=== PATIENT | male | born 1955 | race Caucasian/White ===

== ENCOUNTER → 2021-11-25 14:48 | Outpatient (CLI) | payer OTHER, MEDICAID, SELFPAY | PROVIDERS: Family Provider Family Medicine; PCP Family Medicine; Referring Provider Physician Assistant; Visit Provider Physician Assistant | DX: L03.115 Cellulitis of right lower limb (principal) | CPT/HCPCS: 87070; 87075; 87077; 87147; 87186; 87205 ==

== ENCOUNTER → 2021-12-16 15:54 | Outpatient (CLI) | payer OTHER, MEDICAID, SELFPAY | PROVIDERS: Family Provider Family Medicine; PCP Family Medicine; Referring Provider Physician Assistant; Visit Provider Physician Assistant | DX: U07.1 COVID-19 (principal) | CPT/HCPCS: C9803 ==

== ENCOUNTER → 2024-04-10 09:02 | Outpatient (CLI) | payer MEDICARE, SELFPAY ==
[2024-04-10 19:38] LABS: Hematocrit 48.2 % (41-53); Hemoglobin 16.2 g/dL (13.5-17.5); Mean Corpuscular HGB Conc 33.5 % (30-36); Mean Corpuscular Hemoglobin 31.4 PG (26-34); Mean Corpuscular Volume 93.6 fL (80-100); Platelet Count 259 X10^3/uL (150-400); Red Blood Cell Count 5.15 X10^6/uL (4.5-5.9); Red Cell Distribution Width 14.7 % (11.6-14.8); White Blood Cell Count 7.2 X10^3/uL (4.5-11.0)
[2024-04-10 19:39] LABS: Alanine Aminotransferase 18 IU/L (<50); Albumin 3.8 g/dL (3.5-5.0); Albumin Globulin Ratio 1.3 (1.0-2.8); Alkaline Phosphatase 93 U/L (38-126); Aspartate Aminotransferase 27 IU/L (17-59); BUN Creatinine Ratio 19.8 (6-22); Blood Urea Nitrogen 20 mg/dL (9-20); Calcium 8.8 mg/dL (8.4-10.2); Carbon Dioxide 31 mmol/L (22-32); Chloride 101 mmol/L (98-107); Cholesterol 188 mg/dL (140-199); Estimated Glomerular Filt Rate > 60 mL/min (>60); Globulin 2.9 g/dL (1.7-4.1); Glucose 103 mg/dL (80-110); HDL Cholesterol 80 mg/dL (40-60); HEMOLYSIS < 15 (0-50); LDL Cholesterol Calculated 87 mg/dL (<100); Potassium 3.6 mmol/L (3.4-5.1); Sodium 139 mmol/L (137-145); Total Protein 6.7 g/dL (6.3-8.2); Triglycerides 104 mg/dL (35-150)
[2024-04-10 19:43] LABS: Add Manual Diff / Slide Review YES
[2024-04-10 20:10] LABS: Prostate Specific Antigen Scrn 0.958 ng/mL (0.1-4.0); TSH w/ Reflex to FT4 1.29 uIU/mL (0.47-4.68)
[2024-04-10 20:16] LABS: Neutrophils Absolute Manual 3384 /uL (3000-5900); Total Cells Counted 100
[2024-04-10 20:17] LABS: RBC Morphology Normal Morphology
== END ==
PROVIDERS: Family Provider Family Medicine; PCP Physician Assistant; Visit Provider Physician Assistant
DX: I10 Essential (primary) hypertension (principal); M11.20 Other chondrocalcinosis, unspecified site; Z12.5 Encounter for screening for malignant neoplasm of prostate; M17.0 Bilateral primary osteoarthritis of knee; L40.9 Psoriasis, unspecified; E78.9 Disorder of lipoprotein metabolism, unspecified; Z79.899 Other long term (current) drug therapy; Z11.59 Encounter for screening for other viral diseases
CPT/HCPCS: 80053; 80061; 84443; 85007; 85025; 86803; G0103

== ENCOUNTER → 2024-11-28 10:50 | Outpatient (CLI) | payer MEDICARE, SELFPAY ==
--- NOTE | 2024-11-28 10:54 | EKG_ITS ---
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
[2024-11-28 12:27] LABS: Add Manual Diff / Slide Review NO; Basophils Absolute Auto 100 /uL (0-100); Basophils Percent Auto 1.4 % (0-2); Eosinophils Absolute Auto 200 /uL (0-450); Eosinophils Percent Auto 1.8 % (2-4); Hematocrit 45.8 % (41-53); Hemoglobin 15.2 g/dL (13.5-17.5); Lymphocytes Absolute Auto 2600 /uL (1100-4500); Lymphocytes Percent Auto 29.4 % (25-40); Mean Corpuscular HGB Conc 33.2 % (30-36); Mean Corpuscular Hemoglobin 31.8 PG (26-34); Monocytes Absolute Auto 800 /uL (0-900); Monocytes Percent Auto 9.2 % (3-14); Neutrophils Absolute Auto 5200 /uL (1500-7000); Neutrophils Percent Auto 58.2 % (50-75); Platelet Count 255 X10^3/uL (150-400); Red Blood Cell Count 4.77 X10^6/uL (4.5-5.9); Red Cell Distribution Width 14.8 % (11.6-14.8)
[2024-11-28 12:51] LABS: BUN Creatinine Ratio 22.3 (6-22); Blood Urea Nitrogen 21 mg/dL (9-20); Calcium 9.3 mg/dL (8.4-10.2); Carbon Dioxide 24 mmol/L (22-32); Chloride 104 mmol/L (98-107); Estimated Glomerular Filt Rate > 60 mL/min (>60); Glucose 112 mg/dL (80-110); HEMOLYSIS < 15 (0-50); Potassium 4.5 mmol/L (3.4-5.1); Sodium 136 mmol/L (137-145)
== END ==
LOC: LAB 10:52
PROVIDERS: Family Provider Family Medicine; PCP Physician Assistant; Referring Provider Orthopaedic Surgery; Visit Provider Orthopaedic Surgery
DX: Z01.818 Encounter for other preprocedural examination (principal); R73.9 Hyperglycemia, unspecified; Z01.812 Encounter for preprocedural laboratory examination; N39.0 Urinary tract infection, site not specified
CPT/HCPCS: 80048; 83036; 85025; 93005

== ENCOUNTER 2024-12-04 06:15 | Day surgery (SDC) | payer MEDICARE, SELFPAY ==
[2024-11-27 08:03] VITALS: BMI 31.8
[2024-12-04] VITALS (12 sets, daily range): BP systolic 94–144; BP diastolic 56–94; PULSE 79–103; RESP 14–20; TEMP 35.8–37.3; O2SAT 93–99; BMI 28.6
--- NOTE | 2024-12-04 | DI.RAD.S_ITS ---
PROCEDURE: XR HIP W PEL IF DONE RT 4V INDICATIONS: INTRA OP ANTERIOR RT HIP TECHNIQUE: Single intraoperative AP view of the right hip was obtained COMPARISON: None. FINDINGS: Bones: There are no osseous abnormalities. SI and hip joints: Right total hip prosthesis is anatomically aligned. Soft tissues: Mild soft tissue swelling. IMPRESSION: Right total hip prosthesis is anatomically aligned. Dictated by: Hammad Cadena M.D. on 12/05/2024 at 9:23 Approved by: Hammad Cadena M.D. on 12/05/2024 at 9:24
--- NOTE | 2024-12-04 06:00 | DI.RAD.S_ITS ---
PROCEDURE: XR HIP W PEL IF DONE RT 2V INDICATIONS: ANTERIOR TOTAL RIGHT HIP TECHNIQUE: AP pelvis and lateral view of the hip acquired. COMPARISON: [facility], [place], XR HIP W PEL IF DONE RT 4V, 12/04/2024, 9:07. FINDINGS: Bones: Patient is status post right hip arthroplasty, with hardware components in expected positions. The hip joint appears congruent. The visualized bony structures appear intact. Soft tissues: Overlying postoperative changes are noted. No suspicious soft tissue densities. IMPRESSION: Expected post-operative appearance of a right hip arthroplasty. Dictated by: Jacoby York M.D. on 12/04/2024 at 12:36 Approved by: Jacoby York M.D. on 12/04/2024 at 12:37
[2024-12-04] MEDS: LACTATED RINGERS 1,000 ML 42 ML IV ×2 (07:15→08:55)
[2024-12-04] MEDS: CELECOXIB 200 MG CAPSULE PO (07:15)
[2024-12-04] MEDS: ACETAMINOPHEN 325 MG TABLET 975 MG PO (07:15)
[2024-12-04] MEDS: VANCOMYCIN 1,000 MG in SODIUM CHLORIDE 0.9% 250 ML 250 MG IV (07:27)
--- NOTE | 2024-12-04 07:43 | PM.PREOP ---
Pre-operative Note Interval Note History & Physical reviewed/Exam performed by Physician: Yes Changes to H&P: No
--- NOTE | 2024-12-04 07:43 | PM.OP.1 ---
Operative Date/Time/Diagnoses Date of procedure: 12/04/24 Time of procedure: 08:00 Pre-op diagnosis: right hip OA Post-op diagnosis: same Procedure & Clinicians Procedure: right total hip anterior approach Same procedure as scheduled: Yes Indications: The patient has had progressively worsening right hip pain with radiographic changes consistent with arthritis. Non-operative management has failed and the patient has requested total hip replacement. The risks, benefits and alternatives to surgery were discussed with the patient prior to proceeding. Risks discussed included, but were not limited to, failure to relieve pain, leg length discrepancy, dislocation, stiffness, infection, nerve damage, deep venous thrombosis, pulmonary embolism, stroke, coma, heart attack, permanent paralysis and , as well as the potential need for eventual revision of the prosthetic. Surgeon: Erin Robert Heading Saw Operator: Joleen Holliday Anesthesia Type: General and Spinal Operative Notes Findings: Severe right hip OA, adequate bone, adequate stability Closure Type: primary Specimen(s): none sent Prosthetic devices, grafts, tissues, transplants, or devices: Robert and nephew R3 58, neutral poly liner,one 6.5 mm screw, polar stem lateralized size 4, 36 x +0 cobalt chrome head Estimated Blood Loss (mL): 250 Blood products transfused: none Procedure in detail: The patient was brought to the operating room. Patient was carefully positioned in the supine position. Time-out was performed and antibiotics were given. Anesthesia was induced. He was positioned in the on the table in order to allow hyperextension of the hip. The right lower extremity was prepped and draped in a standard sterile fashion. An anterior right hip incision was made 1 fingerbreadth lateral to the anterior superior iliac spine and extended distally towards the greater trochanter. Dissection was carried out through skin and subcutaneous tissues. Superficial hemostasis was achieved. The fascia over the tensor fascia vianey was defined and incised with a knife. Two Allis clamps were used to grasp the fascia. Tensor fascia vianey was retracted laterally. A gelpi retractor was placed. Dissection was carried out down along the neck. The circumflex vessels were carefully identified and cauterized with the Aqua Mantis. A PA was used during the procedure and was essential for intraoperative retraction and safe implantation of the components. There was good visualization of the femoral neck. A Cobra was placed superior to the neck and the gluteus fibers were carefully stripped from that superior aspect of the capsule. A 2nd retractor was placed along the inferior aspect of the neck. The rectus insertion along the capsule was partially released. A 3rd retractor that was then gently placed over the rim of the acetabulum under the rectus. Capsule was carefully incised and released from the intertrochanteric line circumferentially superior to the mid sagittal line and inferiorly to the mid sagittal line until the lesser trochanter was palpable. A tag stitch was placed both in the superior and inferior limb of the capsular insertion. Along the acetabulum capsule was also released up to the mid sagittal 12:00 position. A portion of the labrum was resected. A saw was used to perform an osteotomy at the level of the intertrochanteric line and the junction of the superior femoral neck leaving approximately 1 finger breath of residual inferior neck above the lesser trochanter. A 2nd cut was made along the femoral neck at the base of the head and a napkin ring of neck was removed. Corkscrew was placed in the femoral head and the head was removed without difficulty. Retractors were then repositioned around the acetabulum. Residual labrum was resected and additional osteophytes were removed. A reamer that was 4 mm below the templated size was placed by hand in the acetabulum and it was reamed to centralize the acetabulum. It was then reamed up to 2 under the templated size and fluoroscopy was brought in to confirm the position of the reaming and depth of reaming. I reamed 1 under the anticipated size. A trial cup was placed and noted that it was appropriately sized and fluoroscopy confirmed position and depth. The component was open and inserted without difficulty fluoroscopic imaging was used to confirm that the cup had been adequately seated and was well positioned. It was further stabilized with a single screw. Neutral poly liner was placed. The cup was tested and noted to be stable. Attention was then directed to the femur. The femur was gently hyperextended additional capsular release was performed as needed in order to allow adequate visualization of the proximal femur with elevation of the femur. Patient was placed in a hyperextended slightly adducted position with maximum external rotation. Box osteotome was used to check for any residual neck as well as sclerotic bone along the trochanter. [place] pepper was placed in the femur. Additional broaching was performed. Canal finder was used to determine the alignment of the canal and position. Size 1 broach was placed. The canal was then appropriately broached up to the templated size as long as there was adequate stability of the broach and serial advancement of the broach without excessive impingement. Specific attention was directed at avoiding varus attempting to direct the distal aspect of the broach more anteriorly and avoiding excessive anteversion. Trial reduction showed acceptable range of motion, good stability, no posterior impingement, nondenominational of leg length and appropriate lateral shuck. I also hyperflexed the hip and checked that there was no impingement anteriorly and there was good stability with flexion, adduction and internal rotation. Marcaine and Exparel were injected. The stem was placed without difficulty. Repeat trial reduction and x-ray showed acceptable overall position, length, and no evidence of the femoral fracture. Final head was placed. Wound was meticulously irrigated with normal saline. The hip was reduced and additional Exparel and Marcaine were injected. The capsule was closed with interrupted nonabsorbable sutures. The fascia of the tensor was closed with interrupted and running Vicryl. No drain was placed. Any tensor fascia vianey muscle that appeared to be contused or injured which was a minimal amount was carefully resected. Capsule around the tensor was injected with Exparel and Marcaine. The skin was closed with barbed stitches for the subcutaneous tissue and skin. We also used surgical glue. The wound was dressed sterilely. Brief Betadine soak was also used and was meticulously irrigated with normal saline. Patient was transferred to recovery room in satisfactory condition. Complications: none Post-operative Condition: stable Disposition: same day surgery Plan for aftercare: The patient will be maintained on a standard total hip replacement protocol with weight bearing as tolerated and anterior hip precautions. The patient will receive Aspirin and sequential compression devices for DVT prophylaxis. The patient will be discharged home when safe for the home environment.
[2024-12-04] MEDS: CEFAZOLIN 2 GM/100 ML PREMIX 100 ML IV ×3 (08:00→23:56)
[2024-12-04] MEDS: TRANEXAMIC ACID 1,000 MG VIAL 2000 MG INJ ×2 (08:02→10:05)
--- NOTE | 2024-12-04 08:28 | SUR.OPER ---
Patient supine on padded [place] table, one arm on padded arm board at <90, other arm padded and secured with tape across patient's chest, both legs secured in padded traction boots and positioned per surgeon, padded post at patient's groin, pressure points checked and padded.
[2024-12-04] MEDS: BUPIVACAINE 0.25% W/ EPI 30 ML VIAL 60 ML INJ (08:42)
[2024-12-04] MEDS: BUPIVACAINE LIPOSOME 266 MG/20 ML VIAL INJ (08:42)
[2024-12-04] MEDS: OXYCODONE IR 5 MG TABLET PO ×3 (11:02→21:34)
[2024-12-04] MEDS: LACTATED RINGERS 1,000 ML 100 ML IV (11:42)
--- NOTE | 2024-12-04 12:41 | PC.NURSE ---
Pt to room 203 via bed from PACU. Pt is awake, alert, and oriented. Spouse Gay is at the bedside. IV infusing as ordered. Bed alarm on for safety, scd's on and running as directed. Pt oriented to room, call light, bed controls, and tv controls. Ice pack to cdi aquacell dsg to right anterior hip. Pt denies needs at this time and agrees to call for assistance as needed.
[2024-12-04] MEDS: ACETAMINOPHEN 325 MG TABLET 650 MG PO (14:36)
[2024-12-04] MEDS: IBUPROFEN 400 MG TABLET PO (14:36)
--- NOTE | 2024-12-04 15:35 | PT.IIE ---
Current Diagnoses Unilateral primary osteoarthritis, right hip (12/04/24) Surgery Performed Operation Date: 12/04/24 07:45 Actual Procedures p Total Hip Arthroplasty/Anterior Approach(Right) - Erin Robert MD Surgical History (Last Updated 11/27/24 @ 09:13 by Savannah De La Rosa, RN) H/O arthroscopy of knee Hx of abdominal surgery Hx of hernia repair Hx of shoulder surgery Medical History (Last Updated 11/29/24 @ 10:55 by Bonnie Tolliver RN) ADHD (~1979) Asthma Cellulitis (06/2017) Chicken pox (~1965) Depression (~2013) Hearing loss History of COVID-19 (2019) HTN (hypertension) Osteoarthritis PTSD (post-traumatic stress disorder) (~1978) Rib fracture Substance abuse (~1979) Physical Therapy Inpatient Evaluation/Re-Eval M1 PT/OT-IP Prior Functional Status Start: 12/04/24 17:04 Freq: NEEDED Status: Active Protocol: Document 12/04/24 15:35 AB (Rec: 12/04/24 17:18 AB [id number]) Medical Review Prior Functional Status Medical History Reviewed Yes Communication able to make needs known Mobility and Gait pts tated that he was modified independent with all mobilities and ambulation using a SPC but started using 1 crutch to walk ~ 4 month ago due to hip pain Social History Household Members spouse,children Living Arrangements House Number of Floors (Floors) One Floor Number of Stairs To Enter/Railing? 4 steps with wide bilateral rails and can only hold on to one rail at a time + 1 step to enter has 1 step up from the kitchen Home Environment Standard Height Toilet,Tub/ Shower Home Equipment Front Wheel Walker,Straight Cane,Crutches,Raised Toilet Seat w/Armrests,Shower Seat with Backrest Additional Social History Comment pt will have his spouse and son to assist him M2 PT-IP Current Condition Start: 12/04/24 17:04 Freq: NEEDED Status: Active Protocol: Document 12/04/24 15:35 AB (Rec: 12/04/24 17:18 AB [id number]) Physical Therapy Current Condition Current Condition Evaluation Date 12/04/24 Treatment Diagnosis s/p R TRACE anterior; difficulty in walking Onset Date 12/04/24 M3 PT-IP Subjective Start: 12/04/24 17:04 Freq: NEEDED Status: Active Protocol: Document 12/04/24 15:35 AB (Rec: 12/04/24 17:18 AB [id number]) Subjective Physical Therapy Visit Type Type Initial Evaluation Visit Start Time 15:35 Visit Stop Time 17:05 Number of RECORD PRODUCER Visits 0 Physical Therapy Visit Comments Patient Comments agreeable to do PT Therapy Pain Assessment Pain When Pain Assessed At Rest Pain Present Pain Present Pain Reported Location Right Hip Intensity 6 Scale Used Numeric (0 - 10) Pain Behaviors Guarding Pain Management Techniques Apply Cold,Distraction, Modification of Treatment,Re- positioning,Timing of Activity with Medications M4 PT-IP Mobility and Gait Start: 12/04/24 17:04 Freq: NEEDED Status: Active Protocol: Document 12/04/24 15:35 AB (Rec: 12/04/24 17:18 AB [id number]) PT-Bed Mobility Assessment Supine to Sit Supine to Sit Minimal Assistance Sit to Supine Sit to Supine Standby Assistance PT-Transfer Assessment Sit to and From Stand Sit to and from Stand Contact Guard Assistance,1 Person Assistance,2 Person Assistance Equipment Transfer Assistive Device Gait Belt,Front Wheeled Walker Orthotic/Prosthetic Devices or Brace: No Transfers Transfer Destination Bed,Chair Transfer Technique ambulated Transfer Ability Level of Assist Contact Guard Assistance,1 Person Assistance,Use of Upper Extremities Comments Mobility Comments pt sitting on the chair and agreeable to do PT. spouse in room with pt. obtained PLOF and home set up. pt is very [place] but also with confusion and clarified info pt provided . educated pt regarding hip precautions. post-op folder provided. pt completed sit to stand CGA. able to stand CGA. ambulated to EOB CGA and cues for safety using FWW CGA. pt completed bed mobility sit to supine min A for LE elevation to bed. SBA for supine to sit. informed spouse on how to assist pt. caregiver training conducted. educated spouse on how to use safety belt and how to assist pt. spouse was able to put safety belt on. assisted pt with sit to stand and ambulation in the hallway ~ 100 ft using FWW CGA. stair climbing training. educated pt on how to do stairs and educated spouse on how to assist pt. pt completed up/down 3 steps holding on to R rail with B rails ascending min A and cues . pt was also able to complete up/down platform step using FWW min A and cues. repeated x 2 sets. assisted pt back to his room. pt ambulated from w/c to chair using FWW CGA. positioned pt on the chair. call light and table placed within reach. reviewed precautions and techniques with pt and spouse. pt and spouse without further concerns. pt wanting to go home today. informed nurse regarding pt's mobility. Gait Assessment Gait Gait Assistance Required: Contact Guard Assist Distance (Feet) 100 Able to Maintain Weight Bearing Status Yes During Gait Assistive Devices Assistive Device Gait Belt,Front Wheeled Walker Orthotic/Prosthetic Devices or Brace: No Gait Deviations General Gait Pattern Antalgic,Decreased Feet Clearance Factors Limiting Gait Function Factors Limiting Gait Function Decreased Activity Tolerance, Decreased Strength,Difficulty Following Directions,Limited Range of Motion,Pain,Poor Balance,Poor Safety Awareness Stair Climbing Assessment Evaluation Level of Assist On Stairs Contact Guard Assistance, Minimal Assistance Devices Stair Climbing Assistive Devices Front Wheel Walker,Right Railing Technique/Endurance Stair Climbing Direction Ascend and Descend Stair Climbing Technique Step to Step Number of Steps Climbed 3 Query Text: Stair Climbing Set # Repetitions (reps) 1 PT-Balance Assessment Sitting Balance and Reactions Static Sitting Balance Ability Normal Dynamic Sitting Balance Ability Good Standing Balance and Reactions Static Standing Balance Ability Fair Dynamic Standing Balance Ability Fair Device Used FWW M5 PT-IP Objective Assessments Start: 12/04/24 17:04 Freq: NEEDED Status: Active Protocol: Document 12/04/24 15:35 AB (Rec: 12/04/24 17:18 AB [id number]) Orientation Orientation/Cognition Level of Alertness Confusional State Orientation Name,Place,Situation Language Function Ability Hard of Hearing Safety Awareness Decreased Safety Awareness Memory Description Short Term Impaired Gross Range of Motion Lower Extremity ROM Assessment Within Functional Limits Strength Lower Extremity Strength Assessment Right Impaired Hip 3-/5 Knee 4-/5 Coordination Assessment Gross Coordination Gross Coordination WNL Muscle Tone Muscle Tone WNL Yes M6 PT-IP Treatment Start: 12/04/24 17:04 Freq: NEEDED Status: Active Protocol: Document 12/04/24 15:35 AB (Rec: 12/04/24 17:18 AB [id number]) Physical Therapy Treatment Education Education Provided Precautions,Weight Bearing Status,Post-Op Packet,Safety M7 PT-IP Assessment and Plan Start: 12/04/24 17:04 Freq: NEEDED Status: Active Protocol: Document 12/04/24 15:35 AB (Rec: 12/04/24 17:18 AB [id number]) PT Summary Assessment and Plan Potential Rehabilitation Potential Fair Status of Condition at Evaluation Evolving Summary Impairments Pain,ROM,Strength,Balance, Coordination,Sensation,Tone, Cognition,Bed Mobility, Transfers,Gait,Activity Tolerance Assessment Summary pt is a 69 y/o M s/p R TRACE anterior approach. pt has R hip anterior precautions and is WBAT. pt requiring min A for bed mobility, CGA for transfers and ambulation and min A for stair climbing. Caregiver training conducted and spouse was able to assist pt with mobility. pt has out pt PT set up. pt may go home when medically stable. Goals Bed Mobility Goal Independent Transfer Goal Independent,Front Wheeled Walker Gait Goal Independent,Front Wheel Walker Gait Distance 250 Other Goals up/down 4 steps R rail ascending mod I up/down 1 step using fWW mod I Days to Meet Goals 5 Frequency of Treatment Frequency Of Treatment Twice a Day Treatment Plan Physical Therapy Treatment Plan Bed Mobility Training,Transfer Training,Gait Training, Therapeutic Exercise,Balance Retraining,Post Op Education, Discharge Planning,Hot or Cold Pack,Neuromuscular Re-ed, Coordination Retraining,Manual Therapy Precautions Anterior Hip Precautions No Hip Extension,No Hip External Rotation Weight Bearing Status Weight Bearing Status Weight Bear as Tolerated Allowed Weight Bearing Amount (enter % RLE WBAT or #) (%) Recommendations To Nursing Amount of Assist Needed 1 Person Assist Discharge Recommendations PT Discharge Recommendations Home with Assistance, Outpatient PT Transportation Needs at Discharge Private Vehicle
--- NOTE | 2024-12-04 16:05 | OT.IPNOTE ---
Pt working with PT, to check on the pt tomorrow.
[2024-12-04] MEDS: DOCUSATE 100 MG CAPSULE PO (21:35)
[2024-12-04] MEDS: ASPIRIN EC 81 MG TABLET PO (21:35)
[2024-12-05] MEDS: ACETAMINOPHEN 325 MG TABLET 650 MG PO (03:09)
[2024-12-05] MEDS: OXYCODONE IR 5 MG TABLET PO ×2 (03:10→08:08)
[2024-12-05 06:21] LABS: Hematocrit 37.5 % (41-53); Hemoglobin 12.5 g/dL (13.5-17.5)
[2024-12-05 08:00] VITALS: BP 118/79; PULSE 90; RESP 16; TEMP 37.1; O2SAT 94
[2024-12-05] MEDS: IBUPROFEN 400 MG TABLET PO (08:07)
[2024-12-05] MEDS: DOCUSATE 100 MG CAPSULE PO (08:08)
[2024-12-05] MEDS: ASPIRIN EC 81 MG TABLET PO (08:08)
--- NOTE | 2024-12-05 08:18 | PM.DS.1 ---
History of Present Illness History of Present Illness Date Patient Seen: 12/05/24 Time Patient Seen: 08:18 Chief complaint: R TRACE *OPB* Narrative: The patient has had progressively worsening right hip pain with radiographic changes consistent with arthritis. Non-operative management has failed and the patient has requested total hip replacement. The risks, benefits and alternatives to surgery were discussed with the patient prior to proceeding. Risks discussed included, but were not limited to, failure to relieve pain, leg length discrepancy, dislocation, stiffness, infection, nerve damage, deep venous thrombosis, pulmonary embolism, stroke, coma, heart attack, permanent paralysis and , as well as the potential need for eventual revision of the prosthetic. Discharge Providers Provider Discharge Date: 12/05/24 Primary care physician: Latanya Coulter PA-C Consults: 11/29/24 10:43 Consult to Anesthesiology Routine Comment: Consulting Provider: Anesthesiologist Reason for consultation: Surgeon request - tachycardia on EKG. 12/04/24 06:00 Consult to Anesthesiology Routine Comment: Consulting Provider: Anesthesiologist Reason for consultation: Regional block for post operative pain control 12/04/24 11:03 Consult to Discharge Planning Routine Comment: Consult to Occupational Therapy Evaluate & Treat Comment: Physician Instructions: Evaluate and treat Consult to Physical Therapy Evaluate & Treat Comment: Physician Instructions: post op TRACE protocol 12/04/24 11:27 Consult to INCIDENT RESPONSE LEAD - Laminator Preforms Routine Comment: Laminator Preforms Consult needed for:: Other reason (Comment) Comment: have had recent financial troubles but decline resources currently. instructed pt to let RN or CM know if would like any info for help post op Discharge provider: Saroj Garcia PA-C Summary Hospital Course Discharge Diagnosis: right hip OA Hospital Course: Procedure: right total hip anterior approach Same procedure as scheduled: Yes Surgeon: Erin Robert Sole Stitcher Hand: Joleen Holliday Anesthesia Type: General and Spinal Operative Notes Findings: Severe right hip OA, adequate bone, adequate stability Closure Type: primary Specimen(s): none sent Prosthetic devices, grafts, tissues, transplants, or devices: Robert and nephew R3 58, neutral poly liner,one 6.5 mm screw, polar stem lateralized size 4, 36 x +0 cobalt chrome head Estimated Blood Loss (mL): 250 Blood products transfused: none Status at Discharge Cognitive/behavioral status at discharge: oriented Functional status at discharge: uses cane/walker Overall status at discharge: patient is back to baseline Time Spent with Patient Time spent: Less than 30 minutes Time spent discussing smoking cessation with patient: 3 to 10 minutes Exam Vital Signs (past 8 hours): Oxygen Delivery Method Room Air Oxygen Flow Rate 0 Narrative Exam Narrative: Patient found sitting comfortably in bed eating his breakfast. Patient's pain is controlled with oral medication. ?Pain is localized to surgical site. ?Patient declines any new numbness or tingling at the surgical extremity. ?Patient denies any shortness of breath, dizziness, light-headedness, nausea, vomiting, fever or chills. Patient has been able to ambulate with physical therapy and walk about the hospital floor. 5/5 strength in hip flexors, quadriceps, hamstrings, DF, PF, EHL bilaterally. Sensation to light touch intact throughout BLE. Calves soft, compressible, nontender. Dressing placed intraoperatively CDI. Resp Effort & Inspection: normal respiratory effort and able to speak in complete sentences Objective Labs 12/05/24 05:57 Labs: Laboratory Results - last 24 hr 12/05/24 05:57 Hgb 12.5 L Hct 37.5 L PFSH Medical History (Updated 11/29/24 @ 10:55 by Bonnie Tolliver RN) Cellulitis (06/2017) History of COVID-19 (2019) Depression (~2013) Osteoarthritis Hearing loss HTN (hypertension) Rib fracture Asthma Substance abuse (~1979) PTSD (post-traumatic stress disorder) (~1978) ADHD (~1979) Chicken pox (~1964) Surgical History (Updated 11/27/24 @ 09:13 by Savannah De La Rosa RN) Hx of hernia repair Hx of abdominal surgery Hx of shoulder surgery H/O arthroscopy of knee Social History household members: spouse and children Smoking Status: Former smoker alcohol intake: former Discharge Assessment & Plan Assessment and Plan Assessment: Status post Right total hip anterior approach Plan of Treatment: Discharge to home. ? Anterior Hip Pre-causions. Ambulate and weight bear as tolerated with assistive devices. ? Aspirin 81 mg twice a day for 6 weeks for DVT prevention. ? Baseline pain relief with acetaminophen 500mg every 4 hours as needed and ibuprofen 400 mg every 4 hours as needed. ?Patient has been prescribed oxycodone 5 mg every 4 ?hours as needed for breakthrough pain. ? Initiate physical therapy in the next 5-10 days. ?He will contact [facility] to establish appointment. Keep dressing clean and dry. Keep dressing on until first office visit. If dressing becomes dirty or disrupted, replace with appropriate sized dressing. Follow up in clinic in 2 weeks for wound check. Contact clinic if there are any questions or concerns. Discharge Plan Discharge Plan Patient Disposition: Home Discharge orders & Medications Discharge Orders: Discharge (Order); Ordered 12/05/24 Ordered By: Saroj Garcia Prescriptions: New oxycodone 5 mg Tablet 5 mg PO Q6H PRN (Reason: moderate pain (scale score 5-6)) Qty: 30 0RF acetaminophen [Tylenol] 325 mg tablet 650 mg PO Q6H PRN (Reason: pain) Qty: 90 0RF aspirin 81 mg capsule 81 mg PO BID 42 Days Qty: 84 0RF Changed ibuprofen [Advil] 200 mg Tablet 400 - 600 mg PO Q6H PRN (Reason: Pain) Qty: 90 0RF Follow up/Referrals: Latanya Coulter PA-C [Primary Care Provider] - Erin Robert MD [Physician] - (Follow up at [facility] as scheduled in 2 weeks. ) Diet/Activity/Treatments Diet: Diet as Tolerated Activity: Ambulate multiple times a day. Use a cane or walker as needed. Full weight on leg. Cold/Heat Therapy: Use ice multiple times a day for additional pain control. Skin/Wound/Dressing Care Skin care: Leave dressing on. Okay to shower Report to your healthcare provider any signs of infection, such as:: chills, fever, night sweats, unusual drainage and unusual redness Dressing: May shower. Leave dressing in place until follow up in office. No bathing or otherwise soaking incision. Call the office if the dressing becomes saturated inside. Visit Report/Discharge Packet Instructions: DI for Hip Replacement, DI for Prescription Opioid Use Stand Alone Forms: Patient Portal/API, Surgery Discharge Discharge Data Primary Care Provider: Latanya Coulter Attending Provider: Erin Robert Quality VTE Deep Vein Thrombosis/Pulmonary Embolism Present on Admission: No
--- NOTE | 2024-12-05 09:00 | OT.IP.EVAL ---
Current Diagnoses Unilateral primary osteoarthritis, right hip (12/04/24) Surgery Performed Operation Date: 12/04/24 07:45 Actual Procedures p Total Hip Arthroplasty/Anterior Approach(Right) - Erin Robert MD Past Medical History (Last Updated 11/29/24 @ 10:55 by Bonnie Tolliver, ALEXUS) ADHD (~1979) Asthma Cellulitis (06/2017) Chicken pox (~1965) Depression (~2013) Hearing loss History of COVID-19 (2019) HTN (hypertension) Osteoarthritis PTSD (post-traumatic stress disorder) (~1978) Rib fracture Substance abuse (~1979) Surgical History (Last Updated 11/27/24 @ 09:13 by Savannah De La Rosa RN) H/O arthroscopy of knee Hx of abdominal surgery Hx of hernia repair Hx of shoulder surgery Occupational Therapy Inpatient Evaluation/Re-Eval M1 PT/OT-IP Prior Functional Status Start: 12/04/24 17:04 Freq: NEEDED Status: Active Protocol: Document 12/05/24 09:02 [facility] (Rec: 12/05/24 09:28 [facility] [id number]) Medical Review Prior Functional Status Medical History Reviewed Yes Communication able to make needs known Mobility and Gait pt stated that he was modified independent with all mobilities and ambulation using a SPC but started using 1 crutch to walk ~ 4 month ago due to hip pain Activities of Daily Living and IADL's Pt states able to do all but had pain. Social History Household Members spouse,children Living Arrangements House Number of Floors (Floors) One Floor Number of Stairs To Enter/Railing? 4 steps with wide bilateral rails and can only hold on to one rail at a time + 1 step to enter has 1 step up from the kitchen Home Environment Standard Height Toilet,Tub/ Shower Home Equipment Front Wheel Walker,Straight Cane,Crutches,Raised Toilet Seat w/Armrests,Shower Seat with Backrest,Leg Long Winder Tender, Corporate Analyst Additional Social History Comment pt will have his spouse and son to assist him M2 OT-IP Current Condition Start: 12/05/24 09:02 Freq: Status: Active Protocol: Document 12/05/24 09:02 [facility] (Rec: 12/05/24 09:28 [facility] [id number]) Occupational Therapy Current Condition Current Condition Evaluation Date 12/05/24 Treatment Diagnosis S/P R TRACE Anterior approach Diagnosis Onset Date 1/14/25 Post Operative Precautions Anterior Hip Precautions No Hip Extension,No Hip External Rotation M3 OT- IP Subjective and Pain Start: 12/05/24 09:02 Freq: Status: Active Protocol: Document 12/05/24 09:02 [facility] (Rec: 12/05/24 09:28 [facility] [id number]) OT- Subjective Occupational Therapy Visit Type Type Initial Evaluation Visit Start Time 08:15 Visit Stop Time 09:00 Occupational Therapy Visit Comments Patient Comments Pt agreed to get up and get dressed and do oral care needs . Patient/Caregiver Goals TO go home. OT Pain Assessment Pain When Pain Assessed At Rest Pain Present Pain Present Pain Reported Location Right Hip Intensity 4 Scale Used Numeric (0 - 10) M4 OT- IP ADL's Start: 12/05/24 09:02 Freq: Status: Active Protocol: Document 12/05/24 09:02 [facility] (Rec: 12/05/24 09:28 [facility] [id number]) OT [id number] General Evaluation Self-Feeding Ability Independent OT ADL-Grooming General Evaluation Grooming Ability Independent OT ADL-Oral Care General Eval Oral Care Ability Independent OT ADL-Dressing General Eval Upper Body Dressing Ability Independent Lower Body Dressing Ability Moderate Assistance Comments OT Dressing Comments Assist for socks and shoes. Able to go over LB dressing equipment and practice. Educated to dress the RLE first and take out last. OT ADL-Toileting Comments OT Toileting Comments Suggested to take the urinal home. OT ADL-Bathing Comments OT Bathing Comments Suggested pt may benefit from a tub bench. Otherwise do a dry run to see if he is able to get in with assist to the tub/shower from his son. M5 OT- IP IADL's Start: 12/05/24 09:02 Freq: Status: Active Protocol: Document 12/05/24 09:02 [facility] (Rec: 12/05/24 09:28 [facility] [id number]) OT-Instrumental Activities of Daily Living Home Safety Awareness Awareness of Need for Assistance at Home Good Awareness Ability to Problem Solve Emergency Able to Problem Solve Situations M6 OT- IP Functional Cognition Start: 12/05/24 09:02 Freq: Status: Active Protocol: Document 12/05/24 09:02 [facility] (Rec: 12/05/24 09:28 [facility] [id number]) Cognitive Factors Limiting Selfcare Function Cognitive Ability Level of Alertness Alert Patient Orientation Name,Age,Birthday,Month,Date, Year,Day of Week,Place, Situation Attention Span Ability Capable of Focused Attention, Capable of Sustained Attention Ability to Follow Commands Able to Follow One Step Commands Cognitive Comments Cognitive Assessment Comments Pt needing occasional reminders to move slower and black pickler his feet especially when turning with the FWW. OT- Vision and Hearing OT- Hearing Assessment OT- Hearing Assessment WFL OT- Vision Assessment Visual Acuity Glasses For Reading Visual Attentiveness WFL Occular Pursuits WFL M7 OT- IP Mobility and Balance Start: 12/05/24 09:02 Freq: Status: Active Protocol: Document 12/05/24 09:02 [facility] (Rec: 12/05/24 09:28 [facility] [id number]) OT- Bed Mobility Assessment Supine to Sit Supine to Sit Assist Minimal Assistance OT-Transfer Assessment Sit to and From Stand Sit to and from Stand Contact Guard Assistance Transfers Transfer Ability Standby Assistance Technique Transfer Destination Bed,Chair Transfer Technique Stand Step Pivot Devices Transfer Assistive Devices Gait Belt,Front Wheeled Walker Comments Mobility Comments EUSEBIO to assist to get his RLE to the edge of the bed. Suggested best to get out on the right side however pt states to get out of the left and has a leg specialty foods cook to assist him or his son. SBA to stand to the FWW and vc to push with his hands on the bed to stand . OT- Balance Assessment Sitting Balance and Reactions Static Sitting Balance Ability Normal Dynamic Sitting Balance Ability Normal Standing Balance and Reactions Static Standing Balance Ability Good Dynamic Standing Balance Ability Fair M8 OT- IP Objective Assessments Start: 12/05/24 09:02 Freq: Status: Active Protocol: Document 12/05/24 09:02 [facility] (Rec: 12/05/24 09:28 [facility] [id number]) OT Gross Range of Motion Upper Extremity Range of Motion ROM Impairments WFL for needs. OT Strength Comments Strength Comments WFL for needs. M9 OT- IP Assessment and Plan Start: 12/05/24 09:02 Freq: Status: Active Protocol: Document 12/05/24 09:02 [facility] (Rec: 12/05/24 09:28 [facility] [id number]) OT Summary Assessment and Plan Potential Rehabilitation Potential Excellent Analytic Complexity at Evaluation Low Summary OT Impairments Pain,Strength,Balance, Functional Mobility,Dressing, Toileting,Bathing,Toilet Transfers,Shower Transfers Progress Towards Goals Progressing Toward Goals Assessment Summary Pt low complexity and main barriers are pain and difficulty to move his RLE for bed mobility needs. Pt has a supportive family to assist at home and has yet to set up outpt PT appointment. Pt looking to get sock aid and possibly a tub bench. Pt to go home with assist when stable. Goals Self-Feeding Goal Independent Grooming Goal Independent Dressing Goal Minimal Assistance Toileting Goal Independent Bathing Goal Minimal Assistance Toilet Transfer Goal Independent Shower Transfer Goal Contact Guard Assistance Days to Meet Goals 4 Treatment Plan OT Treatment Plan ADL Training,Functional Mobility,Patient/Family Education,Discharge Planning Discharge Recommendations OT Discharge Recommendations Home with Assistance, Outpatient PT
--- NOTE | 2024-12-05 09:05 | PT.IPTN ---
Current Diagnoses Unilateral primary osteoarthritis, right hip (12/04/24) Surgery Performed Operation Date: 12/04/24 07:45 Actual Procedures p Total Hip Arthroplasty/Anterior Approach(Right) - Erin Robert MD Physical Therapy Treatment Note M2 PT-IP Current Condition Start: 12/04/24 17:04 Freq: NEEDED Status: Discharge Protocol: Document 12/04/24 15:35 [facility] (Rec: 12/04/24 17:18 AB [id number]) Physical Therapy Current Condition Current Condition Evaluation Date 12/04/24 Treatment Diagnosis s/p R TRACE anterior; difficulty in walking Onset Date 12/04/24 M3 PT-IP Subjective Start: 12/04/24 17:04 Freq: NEEDED Status: Discharge Protocol: Document 12/05/24 09:05 [facility] (Rec: 12/05/24 14:34 AB [id number]) Subjective Physical Therapy Visit Type Type Treatment Note Visit Start Time 09:05 Visit Stop Time 09:30 Number of DIRECTOR POWER Visits 0 Therapy Pain Assessment Location Right Hip Intensity 7 Scale Used Numeric (0 - 10) Pain Management Techniques Apply Cold,Distraction, Modification of Treatment,Re- positioning,Timing of Activity with Medications M4 PT-IP Mobility and Gait Start: 12/04/24 17:04 Freq: NEEDED Status: Discharge Protocol: Document 12/05/24 09:05 AB (Rec: 12/05/24 14:34 AB [id number]) PT-Bed Mobility Assessment Supine to Sit Supine to Sit Minimal Assistance Sit to Supine Sit to Supine Minimal Assistance PT-Transfer Assessment Sit to and From Stand Sit to and from Stand Contact Guard Assistance,1 Person Assistance,Use of Upper Extremities Equipment Transfer Assistive Device Gait Belt,Front Wheeled Walker Orthotic/Prosthetic Devices or Brace: No Transfers Transfer Destination Bed,Chair Transfer Technique ambulated Transfer Ability Level of Assist Contact Guard Assistance,1 Person Assistance,Use of Upper Extremities Comments Mobility Comments pt sitting on the chair. spouse in room. spouse was able to put safety belt on and assisted pt with sit to stand CGA. pt ambulated to EOB CGA using fWW. pt completed sit<> supine min A and spouse was able to assist pt. pt ambulated back to chair using fWW SBA to CGA. slow paced antalgic gait. pt and spouse refused to do stair climbing. reviewed stairclimbing techniques and safety. pt able to recall. call light within reach. pt and spouse without further concerns. Gait Assessment Gait Gait Assistance Required: Standby Assistance,Contact Guard Assist Distance (Feet) 15 Able to Maintain Weight Bearing Status Yes During Gait Assistive Devices Assistive Device Gait Belt,Front Wheeled Walker Orthotic/Prosthetic Devices or Brace: No Gait Deviations General Gait Pattern Antalgic,Decreased Stride Length,Decreased Feet Clearance Factors Limiting Gait Function Factors Limiting Gait Function Decreased Activity Tolerance, Decreased Strength,Difficulty Following Directions,Limited Range of Motion,Pain,Poor Safety Awareness M5 PT-IP Objective Assessments Start: 12/04/24 17:04 Freq: NEEDED Status: Discharge Protocol: Document 12/04/24 15:35 AB (Rec: 12/04/24 17:18 AB [id number]) Orientation Orientation/Cognition Level of Alertness Confusional State Orientation Name,Place,Situation Language Function Ability Hard of Hearing Safety Awareness Decreased Safety Awareness Memory Description Short Term Impaired Gross Range of Motion Lower Extremity ROM Assessment Within Functional Limits Strength Lower Extremity Strength Assessment Right Impaired Hip 3-/5 Knee 4-/5 Coordination Assessment Gross Coordination Gross Coordination WNL Muscle Tone Muscle Tone WNL Yes M6 PT-IP Treatment Start: 12/04/24 17:04 Freq: NEEDED Status: Discharge Protocol: Document 12/05/24 09:05 AB (Rec: 12/05/24 14:34 AB [id number]) Physical Therapy Treatment Education Education Provided Safety M7 PT-IP Assessment and Plan Start: 12/04/24 17:04 Freq: NEEDED Status: Discharge Protocol: Document 12/05/24 09:05 AB (Rec: 12/05/24 14:34 AB [id number]) PT Summary Assessment and Plan Potential Rehabilitation Potential Fair Summary Impairments Pain,ROM,Strength,Balance, Coordination,Cognition,Bed Mobility,Transfers,Gait, Activity Tolerance Progress Towards Goals Progressing Toward Goals Assessment Summary pt requiring SBA to CGA with mobility using FWW. caregiver training was conducted yesterday and spouse was able to assist pt today as well. pt plans to go home and has outpt PT set up. Goals Bed Mobility Goal Independent Transfer Goal Independent,Front Wheeled Walker Gait Goal Independent,Front Wheel Walker Gait Distance 250 Other Goals up/down 4 steps R rail ascending mod I up/down 1 step using fWW mod I Days to Meet Goals 5 Frequency of Treatment Frequency Of Treatment Twice a Day Treatment Plan Physical Therapy Treatment Plan Bed Mobility Training,Transfer Training,Gait Training, Therapeutic Exercise,Balance Retraining,Post Op Education, Discharge Planning,Hot or Cold Pack,Neuromuscular Re-ed, Coordination Retraining,Manual Therapy Precautions Anterior Hip Precautions No Hip Extension,No Hip External Rotation Weight Bearing Status Weight Bearing Status Weight Bear as Tolerated Allowed Weight Bearing Amount (enter % RLE WBAT or #) (%) Recommendations To Nursing Amount of Assist Needed 1 Person Assist Discharge Recommendations PT Discharge Recommendations Home with Assistance, Outpatient PT Transportation Needs at Discharge Private Vehicle
--- NOTE | 2024-12-05 09:28 | CM.DANOTE ---
Initial DCP Assessment Visit Note Reviewed EMR and team rounds for status updates. Met with pt at bedside to introduce self and role, pt was found to be resting quietly in bed, alert/oriented, and able to discuss his plan for d/c home later this morning. Pt lives modified independently with his and family in their own home on [address] [facility]. His will be transporting him home, as he has been medically cleared for d/c. This WOOD SCIENCE PROFESSOR will provide them with a Medical Priority Boarding Pass for their return home. Payor: Medicare Attending: Dr. Erin Robert Pt is a 69 year-old M post-op day 1 from a R-total hip arthroplasty surgery. He has done well postoperatively, his pain is well controlled, and he has worked with PT/OT successfully. Pt has a hx of worsening and debilitating R-hip pain that radiates down his R-leg for the last 8-months. The pain has become so bad that he has difficulty bearing weight on that leg, and he is no longer able to do his ADL's without assistance. Per H&H, pt has tried numerous conservative efforts at pain reduction without any lasting benefit. Pt has a plan for OP PT and Ortho f/u visits. He denies any further CM assistance needs at this time. Discharge Planning/Care Management CM Discharge Assessment Start: 12/05/24 09:26 Freq: Status: Active Protocol: Document 12/05/24 09:27 DPL (Rec: 12/05/24 09:28 DPL [id number]) Discharge Planning Assessment Assigned Engine Lathe Set Up Operator Tool LESLIE Schaefer Advance Directives? No History Provided By Patient,Medical Record Has Patient been admitted in last 30 No days? Prior Living Arrangements House Household Members spouse,children Type of transporation used prior to Drives own vehicle admit Independent with ADL's No: modified ind. with a cane or crutch Is patient alert and oriented? Yes Needs Assistance With Home Chores / Shopping Caregiver for Another No DME Already Rented / Owned Bath Bench,Elevated Toilet Seat,FWW / Walker,Cane, Crutches Patient/Family Preference OP PT Therapy Barriers to Discharge No Discharge Plan Home Community Services Physical Therapy Transportation Arrangement spouse Referrals Initiated None needed Whiteboard Updated in Patient Room with Yes name and ext. # of Engine Lathe Set Up Operator Tool Review Status In Process Please Provide Date Initial DC 12/05/24 Assessment Was Performed Pre-Anesthesia Assessment Start: 11/23/24 09:31 Freq: Status: Active Protocol: Document 11/27/24 08:03 CAB (Rec: 11/23/24 10:03 LB [id number]) Pre-Anesthesia Assessment PAC Comment Phone assessment 11/27/24. Anesthesia review sent . Patient Information Reviewed Via Phone Assessment Assessment Completed With Patient Diagnostic Results BMP/CMP,CBC,EKG,Urinalysis Comment 11/28/24 at . Primary Care Provider Latanya Coulter Comment Clearance form 03/07/24 scanned and in surgery folder Medical Clearance Received Yes Seen Specialist in Last 12 Months Yes Specialist Seen Orthopedist Primary Language Zambian Preferred Language Zambian Wet Process Miller Required No Height 185.42 cm Weight 109.316 kg Body Mass Index (BMI) 31.8 Hearing Ability Hearing Impaired Visual Assist Magnifying Glass Dentition Type Teeth, Natural Present,Teeth, Broken,Teeth, Missing Barriers to Learning Auditory Hx Anesthesia Reactions No Hx Family Anesthesia Reaction No Hx Malignant Hyperthermia No Hx Blood Transfusions No Anesthesia Review Requested Yes Additional comment Surgeon request - Sinus tach on EKG. Ambulance Attendant No alcohol intake current alcohol intake frequency 3 or more drinks per day Smoking Status Former smoker Tobacco type cigarettes Has it been 2 weeks or less since Yes: Quit 3-4 days ago patient quit smoking Substance Use Type [#R] marijuana,methamphetamine Comment Advised not to smoke marijuana 24 hours prior surgery Pain Present Pain Reported Comment Right hip. Musculoskeletal Symptoms Abnormal Gait,Difficulty Walking,Joint Pain,Radiating Pain into Limb History of Falling (Recent or History of No ) Patient is completely paralyzed or No completely immobile Prosthesis or Orthotic Device Crutches Mental Status Oriented to own ability Is patient on oxygen? No Does patient have LUX/SOB No Hx Sleep Apnea No Currently Taking a Beta Cedrick No Can You Climb a Flight of Stairs Without No SOB Hx Chest Pain No Hx SOB Yes: Controlled per pt r/t Asthma/COPD, no inhalers Hx Syncope or Dizziness No Anti-Coagulant Therapy No Has a Artificial Candy Maker No Cardiac Testing No Hx Pacemaker/ICD No Pacemaker Rep Required? No Cardiac Clearance Received No Diet Type At Home Regular Dysphagia No Gastrointestinal Symptoms None Urinary Catheter Present No Hx Urinary Self Catheterization No Diabetes No HgbA1C 5.0 Date 11/28/24 Comment 5.0 11/28/24 Hx Drug Resistant Organism Yes: MRSA - RLE cellulitis. Presence of External or Internal Medical No Devices Comment Denies covid last 2 months. Marital Status Lives With spouse,children Current Living Arrangements Mobile home Number of Floors (Floors) One Floor Number of Stairs To Enter/Railing? 4 Support System Child/Children,Spouse Does the Patient Have Assistance After Yes: Son will also assist with Surgery care at [place] Patient Discharge Plan Description Return Home Comment Pt advised same day surgery per surgeon, lives on [facility] Feels Safe in Current Environment Yes Been Physically Hurt or Threatened By a No Person in Current Environment Do you have thoughts of harming yourself None or others? Are you currently considering suicide? No Do you have a plan to hurt yourself or No Plan others? Do You Have Any Spiritual Beliefs That No May Affect Your HC Choices? Do You Have Any Cultural Practices That No May Affect Your HC Choices? Who Can We Speak to About Patient's Care Family, friends Identifying Code for Release of Patient Declines to issue Information Health Care Proxy/Next of Kin Gay Benites - Health Care Proxy Emergency Contact Name Gay Benites - Emergency Contact Advance Directives? No PAC Instructions Assistance for 24 hours post- op,Durable medical equipment, Medications to take/avoid, Nasal antibiotic,No ETOH/ petroleum product on skin DOS, NPO,Pre-surgical wash,Sturdy shoes/comfortable clothes,Do not bring valuables and remove jewelry
--- NOTE | 2024-12-05 10:18 | PC.NURSE ---
Pt is dressed and ready for discharge home with Spouse. IV has been removed. Went over d/c instructions with Pt and Spouse-discussed d/c meds, time of last dose, reviewed stroke education, s/s of infection, showering, and hip precautions. Reminded Pt that he is not to drive while he is taking narcotics and cleared by his Surgeon. Reminded Pt to drink plenty of fluids to prevent constipation or dehydration and to not exceed 3000mg of acetaminophen in 24hrs. Pt deined further questions and was taken out via w/c by RN to POV with spouse and all belongings.
== END 2024-12-05 10:22 | disposition home or self-care (01) ==
LOC: OR 06:19 → AC 06:25
PROVIDERS: Family Provider Family Medicine; PCP Physician Assistant; Referring Provider Orthopaedic Surgery; Visit Provider Orthopaedic Surgery
PROC: (CPT 27130; principal; 2024-12-04 07:45)
DX: M16.11 Unilateral primary osteoarthritis, right hip (principal); I10 Essential (primary) hypertension; Z87.891 Personal history of nicotine dependence
CPT/HCPCS: 27130; 36415; 73502; 73503; 76000; 85014; 85018; 97162; 97165; 97530; 97535; C1776; C1713; J0171; J0666; J0690; J2250; J2405; J2704